=== PATIENT | male | born 1955 | race Caucasian/White ===

== ENCOUNTER 2018-04-29 16:10 | Day surgery (SDC) | payer BC ==
[~2018-04-29 16:10] MED LIST: CEFAZOLIN 2 GM/50 ML (PMX) 50 ML IVPB
[2018-04-29] MEDS ORDERED: EPHEDrine SULFATE 50 MG/5 ML SYG IV (17:30)
[2018-04-29] MEDS ORDERED: HYDROmorphONE 1 MG/5 ML IV SYRINGE IV ×3 (17:30)
[2018-04-29] MEDS ORDERED: METOCLOPRAMIDE 10 MG INJ IV (17:30)
[2018-04-29] MEDS ORDERED: LABETALOL HCL 20MG INJ IV (17:30)
[2018-04-29] MEDS ORDERED: DIPHENHYDRAMINE 50 MG INJ IV (17:30)
[2018-04-29] MEDS ORDERED: ALBUTEROL 0.083% (NEB) 2.5 MG/3 ML AMP HHN (17:30)
[2018-04-29] MEDS ORDERED: MEPERIDINE 25 MG INJ IV (17:30)
[2018-04-29] MEDS ORDERED: OXYCODONE/ACETAMINOPHEN (5/325) TAB PO (17:30)
[2018-04-29] MEDS ORDERED: FENTAnyl 50 MCG/ML VIAL IV ×3 (17:30)
[2018-04-29] MEDS ORDERED: MIDAZOLAM 1 MG/ML 2 ML INJ (17:42)
[2018-04-29] MEDS ORDERED: PROPOFOL 20 ML (17:42)
[2018-04-29] MEDS ORDERED: CEFAZOLIN 1 GM INJ (17:42)
[2018-04-29] MEDS ORDERED: FENTAnyl 50 MCG/ML VIAL ×2 (17:42→18:00)
[2018-04-29] MEDS ORDERED: ONDANSETRON 4 MG INJ (17:54)
[2018-04-29] MEDS ORDERED: DEXAMETHASONE 4 MG/ML 1 ML INJ (17:54)
[2018-04-29] MEDS ORDERED: KETOROLAC 30 MG INJ (17:54)
[2018-04-29] MEDS ORDERED: METOCLOPRAMIDE 10 MG INJ (17:54)
[2018-04-29] MEDS: BUPIVACAINE 0.5% 30 ML VIAL INJ (17:57)
[2018-04-29] MEDS ORDERED: VANCOMYCIN 1 GM (PMX) 250 ML (18:05)
[2018-04-29] MEDS: OXYCODONE/ACETAMINOPHEN (5/325) TAB PO (19:02)
[2018-04-29] MEDS: ONDANSETRON 4 MG INJ IV (19:04)
== END 2018-04-29 19:50 | disposition home or self-care (01) ==
LOC: SDS 16:10
DX: M65.841 Other synovitis and tenosynovitis, right hand (principal); L08.89 Other specified local infections of the skin and subcutaneous tissue; M00.9 Pyogenic arthritis, unspecified
CPT/HCPCS: 26080; 87070; 87075; 87102; 87116; 88300; 88304